=== PATIENT | male | born 1995 | race African-American/Black ===

== ENCOUNTER 2021-03-16 07:16 | Inpatient (IN) | payer OTHER ==
[~2021-03-16] VITALS: Ht 182.9 cm; Wt 91.4 kg
[2021-03-16] MEDS ORDERED: NS 1,000 ML IV ONE (07:45)
[2021-03-16] MEDS ORDERED: BENZONATATE 100MG CAPSULE PO ONE (07:45)
[2021-03-16] MEDS ORDERED: ACETAMINOPHEN 500 MG TAB PO ONE (07:45)
[2021-03-16 08:15] VITALS: O2SAT 96
[2021-03-16 08:35] LABS: HEMATOCRIT 43.3 % (42.0-52.0); HEMOGLOBIN 15.5 g/dl (13.5-17.5); MEAN CORPUSCULAR HEMOGLOBIN 31.9 pg (27.0-33.0); MEAN CORPUSCULAR HGB CONC 35.8 g/dl (32.0-36.5); MEAN CORPUSCULAR VOLUME 89.1 fl (80.0-96.0); PLATELET COUNT, AUTOMATED 194 10^3/uL (150-450); RED BLOOD COUNT 4.86 10^6/uL (4.30-6.10); WHITE BLOOD COUNT 18.7 10^3/uL (4.0-10.0)
[2021-03-16 09:03] LABS: ALBUMIN 2.9 GM/DL (3.2-5.2); ALT/SGPT 17 U/L (12-78); BILIRUBIN,TOTAL 0.9 MG/DL (0.2-1.0); BLOOD UREA NITROGEN 15 MG/DL (7-18); CALCIUM LEVEL 8.8 MG/DL (8.5-10.1); CARBON DIOXIDE LEVEL 25 MEQ/L (21-32); CHLORIDE LEVEL 96 MEQ/L (98-107); CREATININE FOR GFR 1.38 MG/DL (0.70-1.30); GLOMERULAR FILTRATION RATE > 60.0 (>60); GLUCOSE, FASTING 143 MG/DL (70-100); LDH LACTATE DEHYDROGENASE 135 U/L (87-241); POTASSIUM SERUM 3.2 MEQ/L (3.5-5.1); SODIUM LEVEL 129 MEQ/L (136-145); TOTAL PROTEIN 7.6 GM/DL (6.4-8.2)
[2021-03-16 09:11] LABS: RSV AMPLIFICATION NEGATIVE (NEGATIVE)
[2021-03-16 09:25] LABS: LYMPHOCYTES 7 % (16-44); MONOCYTES 3 % (0-5); NEUTROPHILS 83 % (28-66)
[2021-03-16 09:26] LABS: PLATELET ESTIMATE NORMAL (NORMAL)
--- NOTE | 2021-03-16 09:47 | REP ---
INDICATION: fever, cough, leukocytosis. COMPARISON: No comparison chest x-ray. TECHNIQUE: Two views.. FINDINGS: There is a large dense infiltrate in the right upper lobe posteriorly consistent with pneumonia. There is no evidence of pleural effusion. Lung summers are otherwise clear. Cardiomediastinal silhouette is unremarkable. No significant bony abnormality is seen. IMPRESSION: Large dense infiltrate right upper lobe consistent with pneumonia. <Electronically signed by Rocco Whitman > 03/16/21 [id number]
[2021-03-16] MEDS ORDERED: AZITHROMYCIN INJ 500 MG, VIAL MATE ADAPTER 1 EACH in NS 250 ML IV ONE (10:40)
[2021-03-16] MEDS ORDERED: cefTRIAXone SOD 2 GM in D5W MINI-BAG PLUS 50 ML IV ONE (10:40)
[2021-03-16] MEDS ORDERED: NS 1,740 ML in IV 1 EA IV ONE (10:50)
[2021-03-16] MEDS ORDERED: POTASSIUM CHLORIDE 10MEQ SR TABLET PO ONE (11:25)
[2021-03-16] MEDS ORDERED: HOME MED LIST COMPLETE! XX SCH (12:00)
[2021-03-16] MEDS ORDERED: ALBUTEROL 90 MCG/ACT 8GM HFA INHALER INH PRN (12:35)
[2021-03-16] MEDS ORDERED: SODIUM CHLORIDE 0.9% 1000ML IV STA (12:59)
--- NOTE | 2021-03-16 13:15 | HPEPDOC ---
General Date of Admission 03/16/21 Date of Service: Mar 16, 2021 Chief Complaint The patient is a 25-year-old male admitted with a reason for visit of Cold/Flu Symptoms. Source: Patient Exam Limitations: No limitations History of Present Illness Patient is 25 years old male with past medical history of COVID-19 pneumonia 3 months ago presented to hospital with increased shortness of breath. Patient stated with he has been having increased shortness of breath for past 4 days associated with muscle ache and cough. He reported a white sputum production. Patient reported fever up to 104 for past 3 days associated with chills and sweating. Also patient noticed 3-4 times episodes of diarrhea in a day for past few days. In ER patient was found to have fever of 103, tachycardia with heart rate 143, leukocytosis of 18.7, creatinine 1.3, sodium 129, potassium 3.2. Respiratory panel negative. X-ray showed large dense infiltrate right upper lob e consistent with pneumonia. Home Medications No Active Prescriptions or Reported Meds Allergies Coded Allergies: No Known Allergies (Unverified , 03/16/21) Past Medical History Medical History COVID-19 pneumonia Family History I personally reviewed family history and found not pertinent Social History * Smoker: Denies Alcohol: Denies Drugs: denies A-FIB/CHADSVASC A-FIB History Current/History of A-Fib/PAF?: No Current PO Anticoag Therapy: No Review of Systems Constitutional: Reports: Chills, Fever Eyes: Denies: Pain ENT: Denies: Head Aches, Ear Pain Skin: Denies: Rash, Lesions Pulmonary: Reports: Dyspnea, Cough Cardiovascular: Denies: Chest Pain, Palpitations Gastrointestinal: Reports: Diarrhea; Denies: Nausea, Vomiting Genitourinary: Denies: Dysuria, Frequency Hematologic: Denies: Bruising Endocrine: Denies: Polydipsia Musculoskeletal: Denies: Neck Pain Neurological: Denies: Weakness Psych: Reports: Mood Normal Physical Examination General Exam: Positive: Alert, Cooperative Eye Exam: Positive: PERRLA ENT Exam: Positive: Atraumatic Neck Exam: Negative: JVD Heart Exam: Positive: Tachycardic Telemetry: Positive: No significant arrhythmia Abdomen Exam: Positive: Normal bowel sounds Extremity Exam: Negative: Clubbing Skin Exam: Positive: Nl turgor and temperature Neuro Exam: Positive: Normal Gait Psych Exam: Positive: Mental status NL Vital Signs Vital Signs Date Time Temp Pulse Resp B/P (MAP) Pulse Ox O2 Delivery O2 Flow Rate FiO2 03/16/21 11:33 100.0 89 18 126/66 (86) 100 Room Air Laboratory Data Labs 24H Laboratory Tests 2 03/16/21 07:41: Neutrophils (%) (Auto) , Nucleated Red Blood Cells % (auto) 0.0, Neutrophils 83H, Band Neutrophils 7, Lymphocytes (Manual) 7L, Monocytes (Manual) 3, Platelet Estimate NORMAL, Anion Gap 8, Glomerular Filtration Rate > 60.0, Lactic Acid Level 2.0, Calcium Level 8.8, Total Bilirubin 0.9, Aspartate Amino Transf (AST/SGOT) 11, Alanine Aminotransferase (ALT/SGPT) 17, Alkaline Phosphatase 69, Lactate Dehydrogenase 135, Total Protein 7.6, Albumin 2.9L, Albumin/Globulin Ratio 0.6 03/16/21 07:54: Coronavirus (COVID-19)(PCR) NEGATIVE, Influenza Type A (RT-PCR) NEGATIVE, Influenza Type B (RT-PCR) NEGATIVE, Respiratory Syncytial Virus (PCR) NEGATIVE 03/16/21 08:30: Urine Color YELLOW, Urine Appearance HAZY, Urine pH 6.0, Urine Specific Presto 1.029, Urine Protein 2+H, Urine Glucose (UA) NEGATIVE, Urine Ketones NEGATIVE, Urine Blood 1+H, Urine Nitrite NEGATIVE, Urine Bilirubin NEGATIVE, Urine Urobilinogen 0.2, Urine Leukocyte Esterase NEGATIVE, Urine WBC (Auto) 6H, Urine RBC (Auto) 0, Urine Hyaline Casts (Auto) 0, Urine Bacteria (Auto) NEGATIVE, Urine Squamous Epithelial Cells 0, Urine Mucus (Auto) SMALL, Urine Sperm (Auto) 03/16/21 08:31: 03/16/21 10:39: CBC/BMP Laboratory Tests 03/16/21 07:41 Microbiology Microbiology 03/16/21 Gram Stain, Received Pending 03/16/21 Sputum Culture, Received Pending 03/16/21 Blood Culture, Received Pending 03/16/21 Blood Culture, Received Pending 03/16/21 Respiratory Virus Panel (PCR) ([facility]) - Final, Complete Assessment/Plan Patient is 25 years old male with past medical history of COVID-19 pneumonia 3 months ago presented to hospital with increased shortness of breath. Patient stated with he has been having increased shortness of breath for past 4 days associated with muscle ache and cough. He reported a white sputum production. Patient reported fever up to 104 for past 3 days associated with chills and sweating. Also patient noticed 3-4 times episodes of diarrhea in a day for past few days. In ER patient was found to have fever of 103, tachycardia with heart rate 143, leukocytosis of 18.7, creatinine 1.3, sodium 129, potassium 3.2. Respiratory panel negative. X-ray showed large dense infiltrate right upper lobe consistent with pneumonia. Problems (1) Sepsis Status: Acute Problem Text: Secondary to community-acquired pneumonia Patient has leukocytosis, tachypnea, tachycardia Await blood culture, sputum culture IV ceftriaxone, azithromycin IV Incentive spirometry Prednisone 40 mg for 5 days (2) Community acquired pneumonia Problem Text: X-ray showed large dense infiltrate right upper lobe consistent with pneumonia. Incentive spirometry See above (3) Diarrhea Status: Acute Problem Text: GI panel ordered Plan / VTE VTE Prophylaxis Ordered?: Yes MANSI OSEGUERA DO Mar 16, 2021 13:15
[2021-03-16] MEDS: predniSONE 20 MG TAB PO SCH (13:48)
[2021-03-16] MEDS: NS 1,000 ML IV SCH ×2 (13:48→23:02)
[2021-03-16] MEDS: ACETAMINOPHEN TAB 650MG DOSE (2X325MG) PO PRN ×2 (13:48→17:57)
[2021-03-16 14:00] VITALS: BP 142/79
[2021-03-16] MEDS: HEPARIN SOD (PORCINE) 5000UNITS/ML 1ML VIAL/SYRINGE SC SCH (20:00)
[2021-03-16 20:28] VITALS: BP 120/61
[2021-03-17 06:00] VITALS: BP 108/62
[2021-03-17 06:36] LABS: HEMATOCRIT 42.5 % (42.0-52.0); MEAN CORPUSCULAR HEMOGLOBIN 32.6 pg (27.0-33.0); MEAN CORPUSCULAR HGB CONC 35.3 g/dl (32.0-36.5); MEAN CORPUSCULAR VOLUME 92.4 fl (80.0-96.0); PLATELET COUNT, AUTOMATED 192 10^3/uL (150-450); WHITE BLOOD COUNT 18.4 10^3/uL (4.0-10.0)
[2021-03-17 06:53] LABS: ALBUMIN 2.2 GM/DL (3.2-5.2); ALT/SGPT 18 U/L (12-78); BILIRUBIN,TOTAL 0.4 MG/DL (0.2-1.0); BLOOD UREA NITROGEN 13 MG/DL (7-18); CALCIUM LEVEL 8.2 MG/DL (8.5-10.1); CARBON DIOXIDE LEVEL 25 MEQ/L (21-32); CHLORIDE LEVEL 108 MEQ/L (98-107); CREATININE FOR GFR 1.09 MG/DL (0.70-1.30); GLOMERULAR FILTRATION RATE > 60.0 (>60); GLUCOSE, FASTING 123 MG/DL (70-100); MAGNESIUM LEVEL 2.6 MG/DL (1.8-2.4); POTASSIUM SERUM 4.1 MEQ/L (3.5-5.1); SODIUM LEVEL 140 MEQ/L (136-145); TOTAL PROTEIN 5.8 GM/DL (6.4-8.2)
[2021-03-17] MEDS: HEPARIN SOD (PORCINE) 5000UNITS/ML 1ML VIAL/SYRINGE SC SCH ×2 (07:26→19:24)
[2021-03-17] MEDS: predniSONE 20 MG TAB PO SCH (07:33)
[2021-03-17] MEDS: ACETAMINOPHEN TAB 650MG DOSE (2X325MG) PO PRN ×3 (07:34→19:29)
[2021-03-17 08:28] VITALS: BP 127/77
[2021-03-17] MEDS: NS 1,000 ML IV SCH ×2 (08:54→19:29)
[2021-03-17] MEDS: cefTRIAXone SOD 2 GM in D5W MINI-BAG PLUS 50 ML IV SCH (10:38)
[2021-03-17] MEDS: AZITHROMYCIN INJ 500 MG, VIAL MATE ADAPTER 1 EACH in NS 250 ML IV SCH (11:27)
[2021-03-17] MEDS ORDERED: ISOVUE-370 76% 100ML VIAL As Ordered ONE (12:25)
--- NOTE | 2021-03-17 13:28 | REP ---
INDICATION: pna. COMPARISON: None. TECHNIQUE: Imaging protocol: Computed tomography of the chest with IV contrast. Contiguous 3 mm thick axial projection images were obtained through the chest. 2D sagittal and coronal reconstructions were performed. Radiation optimization: All CT scans at this facility use at least one of these dose optimization techniques: automated exposure control; mA and/or kV adjustment per patient size (includes targeted exams where dose is matched to clinical indication); or iterative reconstruction. CONTRAST: 75 cc Isovue 370 intravenous FINDINGS: Lower neck: The thyroid gland is normal. There is no supraclavicular lymphadenopathy. Mediastinum: There is residual thymus in the anterior mediastinum. There are no abnormal masses or lymphadenopathy. Heart/thoracic aorta/pulmonary arterial tree: The heart size is normal. There is no pericardial effusion. The thoracic aorta is normal. There are no filling defects in the pulmonary arterial tree. Upper abdomen: Limited images the upper abdomen are unremarkable. Thoracic esophagus: Normal. Chest wall and axilla: The soft tissues of the chest wall appear unremarkable. There is no axillary lymphadenopathy. There are no significant bony abnormalities of the chest. Lung parenchyma: There is dense airspace consolidation, with air bronchograms, in the posterior segment of the upper lobe of the right lung, abutting the oblique inter lobar fissure. There is more patchy consolidation extending into the apical and anterior segments of the upper lobe of the right lung. There is a small area of peribronchial consolidation in the superior segment of the lower lobe of the left lung. There are no pleural effusions. IMPRESSION: 1. Right upper lobe lobar pneumonia as described. There is no pleural effusion. 2. Small area of peribronchial consolidation in the superior segment of the lower lobe of the left lung. <Electronically signed by Curry Granda > 03/17/21 [id number]
[2021-03-17 14:00] VITALS: BP 121/73
[2021-03-17] MEDS: guaiFENesin SYRUP 200 MG/10 ML UDC PO PRN ×2 (14:29→20:37)
--- NOTE | 2021-03-17 16:01 | IPNPDOC ---
Text Note Date of Service The patient was seen on 03/17/21. NOTE Subjective: Patient stated with he feels better today. He reported frequent dry cough. No fever or chills Objective: GENERAL APPEARANCE: NAD HEENT: no scleral icterus, no JVD, EOMI CARDIOVASCULAR: S1S2 LUNGS: Diminished lung sounds bilaterally ABDOMEN: soft & not tender w palpation MUSCULOSKELETAL: no cyanosis, no swelling INTEGUMENT: no generalized pallor NEUROLOGICAL: cranial nerve function from 2-12 intact, follows commands, speech not dysarthric Assessment/Plan Patient is 25 years old male with past medical history of COVID-19 pneumonia 3 months ago presented to hospital with increased shortness of breath. Patient stated with he has been having increased shortness of breath for past 4 days associated with muscle ache and cough. He reported a white sputum production. Patient reported fever up to 104 for past 3 days associated with chills and sweating. Also patient noticed 3-4 times episodes of diarrhea in a day for past few days. In ER patient was found to have fever of 103, tachycardia with heart rate 143, leukocytosis of 18.7, creatinine 1.3, sodium 129, potassium 3.2. Respiratory panel negative. X-ray showed large dense infiltrate right upper lobe consistent with pneumonia. Problems (1) Sepsis Secondary to community-acquired pneumonia Patient has leukocytosis, tachypnea, tachycardia blood culture positive for gram-positive cocci in chain. I will repeat blood culture Echo to rule out vegetation IV ceftriaxone, azithromycin IV day 1 [address] chest showed 1. Right upper lobe lobar pneumonia as described. There is no pleural effusion. 2. Small area of peribronchial consolidation in the superior segment of the lower lobe of the left lung. Incentive spirometry Prednisone 40 mg for 5 days (2) Community acquired pneumonia Incentive spirometry See above (3) Diarrhea GI panel ordered Plan / VTE VTE Prophylaxis Ordered?: Yes VS,Fishbone, I+O VS, Fishbone, I+O Laboratory Tests 03/17/21 06:06 Vital Signs Date Time Temp Pulse Resp B/P (MAP) Pulse Ox O2 Delivery O2 Flow Rate FiO2 03/17/21 14:00 99.0 74 18 121/73 (89) 97 Room Air I&O- Last 24 Hours up to 6 AM0 03/17/21 05:59 Intake Total 4305 ml Output Total 1200 ml Balance 3105 ml MANSI OSEGUERA DO Mar 17, 2021 16:01
[2021-03-17 22:00] VITALS: BP 106/68
[2021-03-18] MEDS: NS 1,000 ML IV SCH ×3 (05:23→23:19)
[2021-03-18 06:00] VITALS: BP 121/69
[2021-03-18 08:43] LABS: BASO # 0.1 10^3/uL (0.0-0.2); BASO % 0.4 % (0.0-1.0); EOS # 0.4 10^3/uL (0.0-0.5); EOS % 2.4 % (0.0-3.0); HEMATOCRIT 40.7 % (42.0-52.0); HEMOGLOBIN 13.9 g/dl (13.5-17.5); LYMPH # 1.4 10^3/uL (1.5-5.0); LYMPH % 8.4 % (24.0-44.0); MEAN CORPUSCULAR HEMOGLOBIN 31.5 pg (27.0-33.0); MEAN CORPUSCULAR HGB CONC 34.2 g/dl (32.0-36.5); MEAN CORPUSCULAR VOLUME 92.3 fl (80.0-96.0); MONO # 1.2 10^3/uL (0.0-0.8); MONO % 7.4 % (2.0-8.0); NEUTROPHILS # 13.2 10^3/uL (1.5-8.5); NEUTROPHILS % 80.1 % (36.0-66.0); PLATELET COUNT, AUTOMATED 222 10^3/uL (150-450); RED BLOOD COUNT 4.41 10^6/uL (4.30-6.10); WHITE BLOOD COUNT 16.4 10^3/uL (4.0-10.0)
[2021-03-18] MEDS: HEPARIN SOD (PORCINE) 5000UNITS/ML 1ML VIAL/SYRINGE SC SCH ×2 (09:00→20:31)
[2021-03-18 09:16] LABS: BLOOD UREA NITROGEN 12 MG/DL (7-18); CALCIUM LEVEL 8.1 MG/DL (8.5-10.1); CARBON DIOXIDE LEVEL 26 MEQ/L (21-32); CHLORIDE LEVEL 111 MEQ/L (98-107); CREATININE FOR GFR 1.18 MG/DL (0.70-1.30); GLOMERULAR FILTRATION RATE > 60.0 (>60); GLUCOSE, FASTING 114 MG/DL (70-100); MAGNESIUM LEVEL 2.1 MG/DL (1.8-2.4); POTASSIUM SERUM 3.3 MEQ/L (3.5-5.1); SODIUM LEVEL 143 MEQ/L (136-145)
[2021-03-18] MEDS ORDERED: POTASSIUM CHLORIDE 10MEQ SR TABLET PO ONE (10:00)
--- NOTE | 2021-03-18 10:08 | IPNPDOC ---
Text Note Date of Service The patient was seen on 03/18/21. NOTE Subjective: Patient stated with he feels better today. His cough significantly subsided. No fever or chills reported Objective: GENERAL APPEARANCE: NAD HEENT: no scleral icterus, no JVD, EOMI CARDIOVASCULAR: S1S2 LUNGS: Diminished lung sounds bilaterally ABDOMEN: soft & not tender w palpation MUSCULOSKELETAL: no cyanosis, no swelling INTEGUMENT: no generalized pallor NEUROLOGICAL: cranial nerve function from 2-12 intact, follows commands, speech not dysarthric Assessment/Plan Patient is 25 years old male with past medical history of COVID-19 pneumonia 3 months ago presented to hospital with increased shortness of breath. Patient stated with he has been having increased shortness of breath for past 4 days associated with muscle ache and cough. He reported a white sputum production. Patient reported fever up to 104 for past 3 days associated with chills and sweating. Also patient noticed 3-4 times episodes of diarrhea in a day for past few days. In ER patient was found to have fever of 103, tachycardia with heart rate 143, leukocytosis of 18.7, creatinine 1.3, sodium 129, potassium 3.2. Respiratory panel negative. X-ray showed large dense infiltrate right upper lobe consistent with pneumonia. Problems (1) Sepsis Secondary to community-acquired pneumonia Patient had leukocytosis, tachypnea, tachycardia blood culture positive for Streptococcus pyogenes 2 sets. Repeated blood culture negative 2 sets Echo to rule out vegetation IV ceftriaxone, azithromycin IV day 2 CT chest showed 1. Right upper lobe lobar pneumonia as described. There is no pleural effusion. 2. Small area of peribronchial consolidation in the superior segment of the lower lobe of the left lung. Incentive spirometry Prednisone 40 mg for 5 days (2) Community acquired pneumonia Incentive spirometry See above (3) Diarrhea GI panel ordered Plan / VTE VTE Prophylaxis Ordered?: Yes VS,Fishbone, I+O VS, Fishbone, I+O Laboratory Tests 03/18/21 08:31 Vital Signs Date Time Temp Pulse Resp B/P (MAP) Pulse Ox O2 Delivery O2 Flow Rate FiO2 03/18/21 06:00 98.5 69 14 121/69 (86) 97 Room Air I&O- Last 24 Hours up to 6 AM 03/18/21 06:00 Intake Total 4785 ml Output Total 0 ml Balance 4785 ml MANSI OSEGUERA DO Mar 18, 2021 10:08
[2021-03-18] MEDS: cefTRIAXone SOD 2 GM in D5W MINI-BAG PLUS 50 ML IV SCH (10:54)
[2021-03-18] MEDS: predniSONE 20 MG TAB PO SCH (10:54)
[2021-03-18] MEDS: guaiFENesin SYRUP 200 MG/10 ML UDC PO PRN (11:01)
[2021-03-18] MEDS: AZITHROMYCIN INJ 500 MG, VIAL MATE ADAPTER 1 EACH in NS 250 ML IV SCH (11:41)
[2021-03-18 14:00] VITALS: BP 119/67
[2021-03-18] MEDS: ACETAMINOPHEN TAB 650MG DOSE (2X325MG) PO PRN (15:06)
--- NOTE | 2021-03-18 17:21 | CR.PDOC ---
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 Patient reports having sore throat 03/14/2021 associated with fever and myalgia however patient reports his sore throat improved but fever myalgia persisted associated with diarrhea. He reports having 5-6 bowel movements prior to the presentation. He reports loss of appetite prior to the presentation. He denies having any sick contacts. 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 He denies having any recent travel or deployment, patient lives with 2 other roommates who do not have any symptoms. ALLERGIES: Please see below. HOME MEDICATIONS: Please see below. PAST MEDICAL HISTORY: Patient denies having any past medical history except for childhood asthma PAST SURGICAL HISTORY: Reports having tonsillectomy at age 1 FAMILY HISTORY: Not pertinent. 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 Illicit drug use: Denies any illicit drug use IV drug use: Denies Other relevant social factors: None REVIEW OF SYSTEMS: Constitutional: Reports having fever, chills, denies and headache. Denies night sweats, weight loss. Eyes: Denies any blurry vision or double vision. ENT: Denies any dysphagia, odynophagia, ear discharge, sore throat. Cardiovascular: Denies any chest pain, palpitations, orthopnea/PND. Respiratory: Denies shortness of breath, cough,pleuritic chest pain. Gastrointestinal (GI): Denies any nausea, vomiting, constipation, melena, hematochezia. Initially reports having diarrhea 5-6 bowel movement loose in consistency. Genitourinary: Denies dysuria, hematuria. Musculoskeletal: Reports having muscle aches and myalgias Skin: Denies unsual rashes or ulcers. Hematology/Oncology: Denies any easy bleeding or bruising. Endocrine: Denies cold intolerance, heat intolerance, polydipsia, polyphagia, polyuria All other review of systems is negative. General: Patient is awake, alert, oriented times three, laying in bed , no apparent distress. Eyes: Conjunctiva clear, pupils equal round and reactive to light and accomm odation. EOM full, Fundus: not visualized. ENT: Hearing Bilateral normal. No nasal deviation, oropharynx clear with no lesions/erythema. Neck: supple, no masses, trachea midline, no thyroid nodules, masses, tenderness or enlargement. Cardiovascular: S1, S2, normal rhythm, no murmur appreciated Respiratory: Diminished breath sounds on the right side compared to the left, no wheezes rales or ronchi. Abdomen: Soft, bowel sounds positive, no bruits. Nontender on palpation. Liver edge, spleen, kidney not felt, no masses. Extremities: No clubbing or cyanosis. No edema, no tenderness. Spine: No kyphosis, no paraspinal tenderness, no costovertebral tenderness. Central nervous system (SLOT EDITOR): Awake, alert and fully oriented. Reflexes normal. Skin: No rashes, lesions, ulcerations, subcutaneous nodules or induration. LABORATORY DATA: Please see below. Imaging: CT chest done on 03/17/20 1. Right upper lobe lobar pneumonia as described. There is no pleural effusion. 2. Small area of peribronchial consolidation in the superior segment of the lower lobe of the left lung. Chest x-ray done on 03/16/2021: Impression: Large dense infiltrate right upper lobe consistent with pneumonia ASSESSMENT/PLAN: 1. Community-acquired pneumonia: - Patient was initially started on azithromycin 500 mg and ceftriaxone 2 g, however azithromycin was D/c as blood cultures came back positive for group A strep. Today day 2 of ceftriaxone. Unusual pathogen to cause pneumonia in immunocompetent patient likely started with GpA strep pharyngitis -Continue incentive spirometry. -Sputum cultures pending -Discontinue Prednisone , he is not hypoxic nor wheezing -HIV negative, obtain IGG/M/A levels to rule out CVID common variable immunodeficiency -Once stable, afebrile can switch to Amoxicillin 1 GM PO TID for 2 weeks 2. Group A strep Bacteremia: -Patient had 2 blood cultures positive with group A streptococcus 03/16/2021, 2 negative blood cultures on 03/17/2021. -Continue ceftriaxone [D2]. 3. Diarrhea: -Stool panel is negative. -Today patient reports improvement in his diarrhea. Had only one bowel movement today Vital Signs/I&O Vital Signs Date Time Temp Pulse Resp B/P (MAP) Pulse Ox O2 Delivery O2 Flow Rate FiO2 03/18/21 16:05 100.0 03/18/21 14:00 79 18 119/67 (84) 96 Room Air I&O- Last 24 Hours up to 6 AM 03/18/21 06:00 Intake Total 4785 ml Output Total 0 ml Balance 4785 ml Laboratory Data Labs 24H Laboratory Tests 2 03/17/21 17:50: Methicillin-Resist S.aureus DNA PCR NOT DETECTED 03/18/21 08:31: Immature Granulocyte % (Auto) 1.3, Neutrophils (%) (Auto) 80.1H, Lymphocytes (%) (Auto) 8.4L, Monocytes (%) (Auto) 7.4, Eosinophils (%) (Auto) 2.4, Basophils (%) (Auto) 0.4, Neutrophils # (Auto) 13.2H, Lymphocytes # (Auto) 1.4L, Monocytes # (Auto) 1.2H, Eosinophils # (Auto) 0.4, Basophils # (Auto) 0.1, Nucleated Red Blood Cells % (auto) 0.0, Anion Gap 6L, Glomerular Filtration Rate > 60.0, Nehemias cium Level 8.1L, Magnesium Level 2.1 CBC/BMP Laboratory Tests 03/18/21 08:31 Microbiology Allergies Coded Allergies: No Known Allergies (Unverified , 03/16/21) Home Medications No Active Prescriptions or Reported Meds Vero Delgado MD Mar 18, 2021 17:21 Siri Hernandez MD Mar 18, 2021 21:21
[2021-03-18 17:42] LABS: IMMUNOGLOBULIN A 75.9 MG/DL (70-400); IMMUNOGLOBULIN G 893 MG/DL (681-1648); IMMUNOGLOBULIN M 75.1 MG/DL (40-230)
[2021-03-18 22:00] VITALS: BP 127/73
[2021-03-19 06:10] VITALS: BP 128/74
[2021-03-19 06:43] LABS: HEMATOCRIT 40.1 % (42.0-52.0); HEMOGLOBIN 13.6 g/dl (13.5-17.5); MEAN CORPUSCULAR HEMOGLOBIN 31.6 pg (27.0-33.0); MEAN CORPUSCULAR HGB CONC 33.9 g/dl (32.0-36.5); PLATELET COUNT, AUTOMATED 278 10^3/uL (150-450); RED BLOOD COUNT 4.31 10^6/uL (4.30-6.10); WHITE BLOOD COUNT 12.3 10^3/uL (4.0-10.0)
[2021-03-19 06:53] LABS: BLOOD UREA NITROGEN 8 MG/DL (7-18); CALCIUM LEVEL 8.3 MG/DL (8.5-10.1); CARBON DIOXIDE LEVEL 30 MEQ/L (21-32); CHLORIDE LEVEL 108 MEQ/L (98-107); CREATININE FOR GFR 1.06 MG/DL (0.70-1.30); GLOMERULAR FILTRATION RATE > 60.0 (>60); GLUCOSE, FASTING 96 MG/DL (70-100); MAGNESIUM LEVEL 2.1 MG/DL (1.8-2.4); POTASSIUM SERUM 3.5 MEQ/L (3.5-5.1); SODIUM LEVEL 142 MEQ/L (136-145)
[2021-03-19] MEDS: HEPARIN SOD (PORCINE) 5000UNITS/ML 1ML VIAL/SYRINGE SC SCH (08:21)
--- NOTE | 2021-03-19 09:52 | ECHO ---
ECHOCARDIOGRAM DATE OF PROCEDURE: 03/18/2021 Age: 25 Gender: Male Height: 72 inches Weight: 200 pounds Body Surface Area: 2.13 m2 PATIENT LOCATION: Inpatient, [address] [place] [address], Room 4212 REFERRING PHYSICIAN: MANSI OSEGUERA DO INDICATION: Sepsis. MEASUREMENTS: 2D MEASUREMENTS: RV - 3.8 cm LV - 4.9 cm Septum 1.0 cm Posterior wall 1.0 cm Aortic Root 3.4 cm LA 3.4 cm LVEF 75% Doppler Measurements: AV 1.42 m/s LVOT 1.16 m/s LVOT diameter 2.2 cm MV-E 91, A 59, EA ratio 1.5 Early mitral deceleration time 215 msec E prime medial 12.6, A prime medial 10, E prime lateral 23.7 PV - 0.9 m/s Pulmonary artery acceleration time 120 msec PASP 28 mmHg IVC 1.6 cm COMMENTS: Normal sinus rhythm without interventricular conduction disturbance. M-mode and 2-dimensional and echocardiography was performed with pulse, continuous wave, color flow and tissue Doppler studies. Normal left ventricular size, wall thickness and hyperkinetic wall motion. Normal left atrial size and Doppler assessment of LV diastolic function and estimated mean left atrial pressure. Normal right heart chamber sizes and wall motion and estimated pulmonary arterial pressure. Normal IV size and collapse against an elevated central venous pressure. Normal aortic dimensions. Normal appearing and functioning valvular structures. No apparent intracardiac mass or pericardial effusion. MTDD
[2021-03-19] MEDS: cefTRIAXone SOD 2 GM in D5W MINI-BAG PLUS 50 ML IV SCH (10:25)
[2021-03-19] MEDS: guaiFENesin SYRUP 200 MG/10 ML UDC PO PRN (10:25)
[2021-03-19] MEDS: NS 1,000 ML IV SCH (10:27)
[2021-03-19 14:00] VITALS: BP 131/74
[2021-03-19] MEDS ORDERED: AMOX500T PO (15:33)
--- NOTE | 2021-03-19 18:33 | IPN ---
INFECTIOUS DISEASE PROGRESS NOTE DATE: 03/19/2021 SUBJECTIVE: Mr. Espinoza is doing very well. He has a cough which is mostly nonproductive. He has had no fevers or chills in the past 24 hours. He denies any pleuritic chest pain or shortness of breath. He has no nausea, vomiting or diarrhea. His appetite is good. OBJECTIVE: PHYSICAL EXAMINATION: VITAL SIGNS: Temperature is 99.7, pulse 97, respiratory rate 18, blood pressure 131/74, O2 sat 95% on room air. HEART: Normal S1, S2, no murmurs, rubs or gallops. LUNGS: Clear, slightly diminished at the right upper lobe but no rales, rhonchi or wheezes. ABDOMEN: Soft, nontender, no hepatosplenomegaly. HEART: Normal S1, S2, no murmurs, rubs or gallops. BACK: No CVA or lumbosacral tenderness. EXTREMITIES: No clubbing, cyanosis, or edema or calf tenderness. MEDICATIONS: Ceftriaxone 2 grams IV q. 24 hours. LABORATORY STUDIES: Blood cultures were positive for group A strep, resistant to Tetracycline, Erythromycin and Clindamycin, sensitive to Ampicillin, Penicillin. Sputum culture was good quality with moderate white cells and moderate growth of haemophilus parainfluenza. Beta-lactamase negative, sensitive to Amoxicillin. White count 12.2, hemoglobin 13.6, hematocrit 40.1, platelet count 278. Sodium 142, potassium 3.5, chloride 108, bicarbonate 30, BUN 8, creatinine 1.06, glucose 96, calcium 8.3, magnesium 2.1. IgG 893, IgA 75.9, IgM 75.1. All within normal. HIV negative. MRSA not detected. Urine legionaire antigen, pneumococcal antigen pending. IMAGING: GI panel was negative. Chest CT had large right upper lobe consolidation, lobar pneumonia. IMPRESSION: 1. Right upper lobe lobar pneumonia with group A strep bacteremia and haemophilus parainfluenza on sputum culture. The patient could have a co-infection. Both pathogens are susceptible to Amoxicillin. The patient has no evidence of immunodeficiency. Immunoglobulin level is IgM, IgG, and IgA are all normal. HIV negative. Repeat blood cultures are negative. PLAN: The patient could be discharged home on Amoxicillin one gram orally three times daily for 10-14 days. The case has been discussed with Dr. Velazquez, [facility] on service and the plan has been discussed. Thank you for the consultation.
--- NOTE | 2021-03-19 20:09 | DS.PDOC ---
Discharge Summary General Date of Admission Mar 16, 2021 at 12:31 Date of Discharge 03/19/21 Discharge Summary DISCHARGE DIAGNOSES: 1. Haemophilus parainfluenza pneumonia 2. Strep pyogenes bacteremia COMPLICATIONS/CHIEF COMPLAINT: Community Acquired Pneumonia. HOSPITAL COURSE: 25-year-old male with past medical history of COVID-19 3 months ago pneumonia presented to the hospital with increasing shortness of breath and myalgia as well as cough. An x-ray done in the emergency room department noted a right upper lobe infiltrate consistent with pneumonia. He was started on broad- spectrum antibiotics which were eventually narrowed based on sputum culture; which was positive for Haemophilus parainfluenza. He was also noted to have blood cultures positive for Streptococcus pyogenes. Both pathogens were susceptible to amoxicillin. It was recommended by the infectious disease team that the patient be discharged home with amoxicillin 1 g orally 3 times a day for 14 days. He is advised to have a repeat CT scan done in 4 to 6 weeks to ensure resolution of infiltrate. DISCHARGE MEDICATIONS: Please see below. ALLERGIES: Please see below. PHYSICAL EXAMINATION ON DISCHARGE: VITAL SIGNS: Please see below. General: Lying in bed, no acute distress Head/Neck/Throat: Trachea midline, mucous membranes moist Eyes: Sclera anicteric, PERRLA Thorax: Normal respiratory effort on room air, lungs clear to auscultation bilaterally, no wheezes/rales/rhonchi Cardiovascular: Normal rate, regular rhythm, normal S1, S2; no S3, S4, rubs/gallops/murmurs Abdomen: Bowel sounds present, soft/nontender/nondistended Genitourinary: No CVA tenderness, no Sanders in place Musculoskeletal: Moving all extremities, no edema Skin: Warm, dry Neurologic: AAOx3, speech fluent and goal-directed, no focal deficits, grossly intact LABORATORY DATA: Please see below. IMAGING: CT chest FINDINGS: Lower neck: The thyroid gland is normal. There is no supraclavicular lymphadenopathy. Mediastinum: There is residual thymus in the anterior mediastinum. There are no abnormal masses or lymphadenopathy. Heart/thoracic aorta/pulmonary arterial tree: The heart size is normal. There is no pericardial effusion. The thoracic aorta is normal. There are no filling defects in the pulmonary arterial tree. Upper abdomen: Limited images the upper abdomen are unremarkable. Thoracic esophagus: Normal. Chest wall and axilla: The soft tissues of the chest wall appear unremarkable. There is no axillary lymphadenopathy. There are no significant bony abnormalities of the chest. Lung parenchyma: There is dense airspace consolidation, with air bronchograms, in the posterior segment of the upper lobe of the right lung, abutting the oblique inter lobar fissure. There is more patchy consolidation extending into the apical and anterior segments of the upper lobe of the right lung. There is a small area of peribronchial consolidation in the superior segment of the lower lobe of the left lung. There are no pleural effusions. IMPRESSION: 1. Right upper lobe lobar pneumonia as described. There is no pleural effusion. 2. Small area of peribronchial consolidation in the superior segment of the lower lobe of the left lung. PROGNOSIS: Good ACTIVITY: As tolerated DIET: Regular DISPOSITION: 01 Home, Self-Care. DISCHARGE INSTRUCTIONS: 1. Follow-up with primary care physician within 3 to 5 days. Patient was asked to obtain all imaging results as well as discharge summary for appropriate recommendations as well as follow-ups DISCHARGE CONDITION: Stable TIME SPENT ON DISCHARGE: 30 minutes. Vital Signs/I&Os Vital Signs Date Time Temp Pulse Resp B/P (MAP) Pulse Ox O2 Delivery O2 Flow Rate FiO2 03/19/21 14:00 99.7 97 18 131/74 (93) 95 Room Air I&O- Last 24 Hours up to 6 AM 03/19/21 06:00 Intake Total 3965 ml Output Total 0 ml Balance 3965 ml Laboratory Data Labs 24H Laboratory Tests 2 03/19/21 06:07: Nucleated Red Blood Cells % (auto) 0.0, Anion Gap 4L, Glomerular Filtration Rate > 60.0, Calcium Level 8.3L, Magnesium Level 2.1 CBC/BMP Laboratory Tests 03/19/21 06:07 Microbiology Microbiology 03/17/21 Gastrointestinal Tract Panel (PCR) - Final, Complete 03/17/21 Blood Culture - Preliminary, Resulted No Growth after 48 hours. All Specime... 03/17/21 Blood Culture - Preliminary, Resulted No Growth after 48 hours. All Specime... 03/16/21 Gram Stain - Final, Complete 03/16/21 Sputum Culture - Final, Complete Haemophilus Parainfluenzae 03/16/21 Blood Culture - Final, Complete Streptococcus Pyogenes Grp A 03/16/21 Blood Culture - Final, Complete Streptococcus Pyogenes Grp A 03/16/21 Respiratory Virus Panel (PCR) ([facility]) - Final, Complete Discharge Medications Scheduled Amoxicillin (Amoxicillin) 500 Mg Tablet, 1,000 MG PO TID Allergies Coded Allergies: No Known Allergies (Unverified , 03/16/21) YULI ZAYAS M.D. Mar 19, 2021 20:09
[2021-03-21 17:07] LABS: BODY FLUID CULTURE Not indicated. (.); LEGIONELLA ANTIGEN URINE Negative (Negative); ORGANISM ID Not indicated. (.); SPECIMEN SOURCE Urine (.); URINE STREP PNEUMONIAE ANTIGEN Negative (Negative)
== END 2021-03-19 17:50 | disposition home or self-care (01) | DRG 871 ==
LOC: M ED 07:16 → M ED INP 12:31 → ENRESERV 12:55 → M MSPAV 13:21
PROVIDERS: ADMIT Internal Medicine; ATTEND Internal Medicine
DX: A41.9 Sepsis, unspecified organism (principal); J12.2 Parainfluenza virus pneumonia; R19.7 Diarrhea, unspecified; Z20.822 Contact with and (suspected) exposure to COVID-19; Z86.16 Personal history of COVID-19; B95.0 Streptococcus, group A, as the cause of diseases classified elsewhere